=== PATIENT | female | born 1990 | race Caucasian/White ===

== ENCOUNTER 2018-06-26 07:28 | Emergency (ER) | payer SELFPAY ==
--- NOTE | 2018-06-26 07:55 | PHYS DOC ---
Past History Past Medical History: No Pertinent History Past Surgical History: No Surgical History Smoking: Cigarettes Adult General HPI HPI Patient is a 28-year-old female who presents to the emergency department for evaluation. She states that yesterday she began experiencing a sore throat and this morning awakened with trismus, and some pain and discomfort in her left lateral neck and TMJ area. She is unable to fully open her mouth, due to the pain. She does report pain with swallowing. She also states that she is spitting her saliva, because it hurts to swallow. She has had somewhat of a muffled voice as well. She has not had any fevers or chills. She has not had any nausea, or vomiting. Other than as stated above, there are no alleviating, or exacerbating factors to her symptoms. Review of Systems Review of Systems Constitutional: Denies fever or chills [] Eyes: Denies change in visual acuity, redness, or eye pain [] HENT: Denies nasal congestion. Reports a sore throat [] Respiratory: Denies cough or shortness of breath [] Cardiovascular:The patient denies any shortness of breath, chest pain, palpitations, or orthopnea [] GI: Denies abdominal pain, nausea, vomiting, bloody stools or diarrhea [] : Denies dysuria or hematuria [] Musculoskeletal: Denies back pain or joint pain [] Integument: Denies rash or skin lesions [] Neurologic: Denies headache, focal weakness or sensory changes [] Endocrine: Denies polyuria or polydipsia [] All other systems were reviewed and found to be within normal limits, except as documented in this note. Physical Exam Physical Exam PHYSICAL EXAM: CONSTITUTIONAL: Well developed, well nourished HEAD: normocephalic, atraumatic EENT: PERRL, EOMI. Conjunctivae normal color, sclerae non-icteric; moist mucous membranes. The tympanic membranes are normal bilaterally. Trismus is present, there is peritonsillar edema noted in the area of the left tonsillar pillar, with some uvular deviation to the right, along with left-sided submandibular lymphadenopathy, all suggestive of a peritonsillar abscess. The voice is somewhat muffled, but the airway is patent. There is no stridor or laryngeal tenderness to palpation. NECK: There is left-sided tender submandibular lymphadenopathy. Otherwise neck is Supple, non-tender; no meningismus. LUNGS: Lungs CTA, breathing even and unlabored. Normal air movement. HEART: Regular rate and rhythm, no murmur CHEST: No deformity; non-tender ABDOMEN: The abdomen is soft, and non-tender, no masses or bruits. EXTREM: Normal ROM; no deformity, no calf tenderness. Normal pulses palpable in all extremities. There is no pedal edema. SKIN: No rash; no diaphoresis NEURO: Alert; normal speech and cognition; CN's grossly intact; strength grossly intact without focal deficit. BACK: No CVA TTP. Current Patient Data Lab Results Laboratory Tests Test 06/26/18 07:45 06/26/18 08:13 Group A Streptococcus Rapid Negative White Blood Count 8.8 x10^3/uL Red Blood Count 4.41 x10^6/uL Hemoglobin 13.5 g/dL Hematocrit 39.7 % Mean Corpuscular Volume 90 fL Mean Corpuscular Hemoglobin 31 pg Mean Corpuscular Hemoglobin Concent 34 g/dL Red Cell Distribution Width 13.9 % Platelet Count 315 x10^3/uL Sodium Level 138 mmol/L Potassium Level 3.9 mmol/L Chloride Level 104 mmol/L Carbon Dioxide Level 29 mmol/L Anion Gap 5 Blood Urea Nitrogen 7 mg/dL Creatinine 0.8 mg/dL Estimated GFR (Cockcroft-Gault) 86.7 Glucose Level 104 mg/dL Calcium Level 8.6 mg/dL Current Medications Medications (Trade) Dose Ordered Sig/Katarina Route PRN Reason Start Time Stop Time Status Last Admin Dose Admin Clindamycin Phosphate 50 ml @ 100 mls/hr 1X ONCE IV 06/26/18 08:00 06/26/18 08:29 DC 06/26/18 08:24 Dexamethasone Sodium Phosphate (Decadron) 10 mg 1X ONCE IV 06/26/18 08:30 06/26/18 08:31 DC 06/26/18 08:24 EKG EKG [] Radiology/Procedures Radiology/Procedures [] Course & Med Decision Making Course & Med Decision Making 7:55 AM: ENT is not available at this facility, nor [facility] today. I called the transfer center to arrange definitive management. 8:50 AM: The patient's condition remained stable. I spoke with the transfer center, and the patient was accepted to the ER at by Dr. Meli Espinoza, ENT. I recommended patient be transferred via ambulance, for airway monitoring and IV maintenance, but the patient refused ambulance transfer. She did express understanding of risks involved in this decision, as well as the need to go immediately to the ER, and she has a family member who will drive her. I discussed importance of remaining nothing by mouth. Dragon Disclaimer Dragon Disclaimer This electronic medical record was generated, in whole or in part, using a voice recognition dictation system. Departure Departure: Impression: Primary Impression: Peritonsillar abscess Disposition: XFER SHT-TRM HOSP () Condition: STABLE Referrals: PCP,NO (PCP) DIRK GRIGGS MD Jun 26, 2018 07:55
[2018-06-26] MEDS ORDERED: CLINDAMYCIN 900MG PREMIX 50 ML IV ONE (08:00)
[2018-06-26 08:25] LABS: HEMATOCRIT 39.7 % (36.0-47.0); HEMOGLOBIN 13.5 g/dL (12.0-15.5); RED BLOOD COUNT 4.41 x10^6/uL (3.50-5.40); RED CELL DISTRIBUTION WIDTH 13.9 % (11.5-14.5); WHITE BLOOD COUNT 8.8 x10^3/uL (4.0-11.0)
[2018-06-26] MEDS ORDERED: DEXAMETHASONE SOD PHOS 10 MG/ML VIAL IV ONE (08:30)
[2018-06-26 08:34] LABS: CALCIUM 8.6 mg/dL (8.5-10.1); CREATININE 0.8 mg/dL (0.6-1.0); GFR 86.7; POTASSIUM 3.9 mmol/L (3.5-5.1)
[2018-06-26 09:27] VITALS: BP 115/68
== END 2018-06-26 09:32 | disposition short-term general hospital (02) ==
LOC: ER 07:28
DX: J36 Peritonsillar abscess (principal); R59.1 Generalized enlarged lymph nodes; F17.210 Nicotine dependence, cigarettes, uncomplicated
CPT/HCPCS: 36415; 80048; 85027; 87070; 87880; 96365; 96375; 99285; J1100; J3490

== ENCOUNTER 2021-01-18 13:19 | Emergency (ER) | payer MEDICAID ==
[~2021-01-18] VITALS: Ht 177.8 cm; Wt 70.4 kg
[2021-01-18] MEDS ORDERED: ONDANSETRON PF 4 MG/2 ML VIAL. ONE (13:40)
--- NOTE | 2021-01-18 13:47 | EKG ---
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
--- NOTE | 2021-01-18 14:13 | PHYS DOC ---
Past History Past Medical History: No Pertinent History Additional Past Medical Histor: ADHD Past Surgical History: No Surgical History Smoking: Cigarettes Alcohol Use: Occasionally Drug Use: None Adult General Chief Complaint Chief Complaint: CHEST PAIN HPI HPI Patient is a 30-year-old female who presents with chest pain. Reports the chest pain began approximately 2 to 3 hours prior to presentation, when she got up to get breakfast or her son. She reports never having chest pain like this in the past reports that it begins midsternal and radiates to her back is constant in nature and worsens with inspiration. Reports that she cannot take a deep breath in because of pain. Review of Systems Review of Systems Fourteen body systems of review of systems have been reviewed. See HPI for pertinent positives and negative responses, other rand all other systems are negative, non-pertinent or non-contributory Current Medications Current Medications Current Medications Medications (Trade) Dose Ordered Sig/Katarina Start Time Stop Time Status Last Admin Dose Admin Ondansetron HCl (Zofran) 4 mg STK-MED ONCE 01/18/21 13:40 01/18/21 13:41 DC Sodium Chloride 1,000 ml @ 1,000 mls/hr 1X ONCE 01/18/21 14:15 01/18/21 15:14 UNV Allergies Allergies Allergies Coded Allergies Type Severity Reaction Last Updated Verified Inhaled Anesthetics (Halogen Based) Allergy Unknown 06/26/18 Yes Penicillins Allergy Unknown 06/26/18 Yes Sulfa (Sulfonamide Antibiotics) Allergy Unknown 06/26/18 Yes amoxicillin Allergy Unknown 06/26/18 Yes Physical Exam Physical Exam Constitutional: Well developed, well nourished, no acute distress, non-toxic appearance. HENT: Normocephalic, atraumatic, bilateral external ears normal, oropharynx moist, no oral exudates, nose normal. Eyes: PERRLA, EOMI, conjunctiva normal, no discharge. Neck: Normal range of motion, no tenderness, supple, no stridor. Cardiovascular: Heart rate regular, sinus rhythm, no murmurs rubs or gallops Lungs & Thorax: Bilateral breath sounds clear to auscultation Abdomen: Bowel sounds normal, soft, no tenderness, no masses, no pulsatile masses. Nonsurgical abdomen, no peritoneal signs Skin: Warm, dry, no erythema, no rash. Back: No tenderness, no CVA tenderness. Extremities: No tenderness, no cyanosis, no clubbing, ROM intact, no edema. Neurologic: Alert and oriented X 3, grossly normal motor & sensory function, no focal deficits noted. Psychologic: Affect normal, judgement normal, mood normal. Current Patient Data Vital Signs Vital Signs Date Time Temp Pulse Resp B/P (MAP) Pulse Ox O2 Delivery O2 Flow Rate FiO2 01/18/21 13:19 98.2 70 34 94/42 (59) 99 EKG EKG EKG ordered and interpreted by myself at 1340 hrs. as sinus rhythm at 62 bpm, unremarkable intervals, no axis deviation, no ischemic findings, no STEMI Radiology/Procedures Radiology/Procedures CTA CHEST AND ABDOMEN dated 01/18/2021 2:21 PM Indication:Reason: SUBSTERNAL CHEST PAIN TO RIGHT AND RADIATES TO BACK / Spl. Instructions: OMNI 350 100CC - DELAYS IN ABD PER DR WEI TO LOOK AT PANCREAS / History: Comparison: No comparison is available. Technique: CT images were made through the chest and abdomen using an infusion of 100 mL Omnipaque 350. Multiplanar and 3-D reformations were performed. Some additional delayed images were performed through the abdomen. Exposure: One or more of the following individualized dose reduction techniques were utilized for this examination: 1. Automated exposure control 2. Adjustment of the mA and/or kV according to patient size 3. Use of iterative reconstruction technique. One or more of the following individualized dose reduction techniques were utilized for this examination: 1. Automated exposure control 2. Adjustment of the mA and/or kV according to patient size 3. Use of iterative reconstruction technique Findings: CTA chest: The thoracic aorta is normal in caliber. There is no dissection. There is some beam hardening artifact near the great vessel origins, but there is probably the standard branching pattern. Although this study was not performed to evaluate other structures, there is a focal area of opacity anteriorly in the right upper lobe adjacent to the chest wall and mediastinum. This could be a small area of consolidation or atelectasis. The lungs otherwise are clear. The central airways appear normal. There is no apparent adenopathy. There is some soft tissue density in the anterior mediastinum. Based on configuration, this is favored to represent residual thymus. No discrete mass is seen here. A small amount of air density is visible at both sternoclavicular joints. This could relate to overhead positioning of the patient's arms with some vacuum phenomenon in the joint. No bony destructive process is seen. CTA abdomen findings: The abdominal aorta is normal in caliber. The visceral vessels are widely patent. No abnormal vascularity is seen. Although this study was not performed to evaluate other structures, low attenuation in the left lobe of the liver is consistent with focal fat deposition. The liver, spleen, pancreas, kidneys and adrenal glands otherwise appear normal. IMPRESSION: Normal CTA study of the abdomen and pelvis. There is a small area of opacity anteriorly in the right lung. This may be focal consolidation or atelectasis. Electronically signed by: Wenceslao Simeon Jr., MD (01/18/2021 3:37 PM) [id number] Heart Score Risk Factors: Risk Factors: DM, Current or recent (<one month) smoker, HTN, HLP, family history of CAD, obesity. Risk Scores: Risk Factors: DM, Current or recent (<one month) smoker, HTN, HLP, family history of CAD, obesity. Course & Med Decision Making Course & Med Decision Making Pertinent Labs and Imaging studies reviewed. (See chart for details) [] Dragon Disclaimer Dragon Disclaimer This electronic medical record was generated, in whole or in part, using a voice recognition dictation system. Departure Departure: Impression: Primary Impression: Chest pain, unspecified Disposition: 01 DC HOME SELF CARE/HOMELESS Condition: IMPROVED Referrals: PCPMARY CARMEN (PCP) Patient Instructions: Costochondritis, Gastritis, Adult Additional Instructions: You were seen for chest pain. Your workup did not show any acute abnormalities today, but does not indicate that you do not have underlying cardiovascular disease. 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 As mentioned, you should continue applying heat to the region and utilizing NSAIDs and/or Tylenol for pain control as needed. Also, please utilize daily prescription given to you at discharge for your stomach acid, please take as directed to completion. There might be indication for further diagnostic work-up in outpatient setting or specialist referral. You should return to the ED if you develop worsening chest pain, shortness of breath, fever, abnormal sweating, leg swelling, or any other new or concerning symptoms. Scripts Esomeprazole Magnesium (NEXIUM CAPSULE) 20 Mg Capsule.dr 1 CAP PO DAILY for HEARTBURN, #14 CAP 0 Refills Prov: FREEDOM WEI DO 01/18/21 FREEDOM WEI DO Jan 18, 2021 14:12
[2021-01-18] MEDS: ONDANSETRON PF 4 MG/2 ML VIAL. IVP ONE (14:25)
[2021-01-18] MEDS: IV NORMAL SALINE 1,000ML 1,000 ML IV ONE (14:27)
[2021-01-18] MEDS: ASPIRIN CHEWABLE 81 MG TABLET. PO ONE (14:27)
[2021-01-18 14:31] LABS: CALCIUM 9.2 mg/dL (8.5-10.1); CREATININE 0.8 mg/dL (0.6-1.0); GFR 85.4; POTASSIUM 3.6 mmol/L (3.5-5.1)
[2021-01-18] MEDS: IOHEXOL 350 MG/ML 100 ML VIAL. IV ONE (14:33)
[2021-01-18 14:37] LABS: ALBUMIN 3.9 g/dL (3.4-5.0); ALBUMIN/GLOBULIN RATIO 1.3 (1.0-1.7); TOTAL BILIRUBIN 0.4 mg/dL (0.2-1.0)
[2021-01-18 14:40] LABS: BASO % 0 % (0-3); EOS # 0.1 x10^3/uL (0.0-0.7); EOS % 1 % (0-3); HEMATOCRIT 38.8 % (36.0-47.0); HEMOGLOBIN 13.1 g/dL (12.0-15.5); LYMPH # 1.4 x10^3/uL (1.0-4.8); LYMPH % 11 % (24-48); MEAN CORPUSCULAR HEMOGLOBIN 32 pg (25-35); MEAN CORPUSCULAR HGB CONC 34 g/dL (31-37); MEAN CORPUSCULAR VOLUME 95 fL (79-100); MONO # 0.5 x10^3/uL (0.0-1.1); MONO % 4 % (0-9); NEUT # 10.8 x10^3uL (1.8-7.7); NEUT % 84 % (31-73); PLATELET COUNT 261 x10^3/uL (140-400); RED BLOOD COUNT 4.09 x10^6/uL (3.50-5.40); RED CELL DISTRIBUTION WIDTH 12.3 % (11.5-14.5); WHITE BLOOD COUNT 12.9 x10^3/uL (4.0-11.0)
--- NOTE | 2021-01-18 15:39 | RAD ---
CTA CHEST AND ABDOMEN dated 01/18/2021 2:21 PM Indication:Reason: SUBSTERNAL CHEST PAIN TO RIGHT AND RADIATES TO BACK / Spl. Instructions: OMNI 350 100CC - DELAYS IN ABD PER DR WEI TO LOOK AT PANCREAS / History: Comparison: No comparison is available. Technique: CT images were made through the chest and abdomen using an infusion of 100 mL Omnipaque 35 0. Multiplanar and 3-D reformations were performed. Some additional delayed images were performed thr ough the abdomen. Exposure: One or more of the following individualized dose reduction techniques wer e utilized for this examination: 1. Automated exposure control 2. Adjustment of the mA and/or kV ac cording to patient size 3. Use of iterative reconstruction technique. One or more of the following individualized dose reduction techniques were utilized for this examinat ion: 1. Automated exposure control 2. Adjustment of the mA and/or kV according to patient size 3. Use of iterative reconstruction technique Findings: CTA chest: The thoracic aorta is normal in caliber. There is no dissection. There is some beam harden ing artifact near the great vessel origins, but there is probably the standard branching pattern. Although this study was not performed to evaluate other structures, there is a focal area of opacity anteriorly in the right upper lobe adjacent to the chest wall and mediastinum. This could be a small area of consolidation or atelectasis. The lungs otherwise are clear. The central airways appear yenni l. There is no apparent adenopathy. There is some soft tissue density in the anterior mediastinum. Ba sed on configuration, this is favored to represent residual thymus. No discrete mass is seen here. A small amount of air density is visible at both sternoclavicular joints. This could relate to overhead positioning of the patient's arms with some vacuum phenomenon in the joint. No bony destructive proc ess is seen. CTA abdomen findings: The abdominal aorta is normal in caliber. The visceral vessels are widely paten t. No abnormal vascularity is seen. Although this study was not performed to evaluate other structures, low attenuation in the left lobe of the liver is consistent with focal fat deposition. The liver, spleen, pancreas, kidneys and adrena l glands otherwise appear normal. IMPRESSION: Normal CTA study of the abdomen and pelvis. There is a small area of opacity anteriorly in the right lung. This may be focal consolidation or ate lectasis. Electronically signed by: Wenceslao Simeon Jr., MD (01/18/2021 3:37 PM) [id number]
[2021-01-18] MEDS ORDERED: LIDO:MAALOX 1:1 20 ML SINGLE DOSE. ONE (15:56)
[2021-01-18] MEDS: LIDO:MAALOX 1:1 20 ML SINGLE DOSE. PO ONE (15:58)
[2021-01-18 16:02] VITALS: BP 127/74
[2021-01-18] MEDS ORDERED: ESOM20CA PO (16:09)
[2021-01-18 16:31] LABS: U PREG PATIENT NEGATIVE (NEG)
[2021-01-18 16:35] LABS: BARBITURATES NEG (NEG); BENZODIAZEPINES NEG (NEG); CANNABINOIDS NEG (NEG); COCAINE NEG (NEG); METHADONE NEG (NEG); OPIATES NEG (NEG); PHENCYCLIDINE NEG (NEG)
[2021-01-18 16:38] LABS: AMPHETAMINE/METHAMPHETAMINE POS (NEG)
== END 2021-01-18 16:42 | disposition home or self-care (01) ==
LOC: ER 13:19
DX: R07.89 Other chest pain (principal); Z88.0 Allergy status to penicillin; Z88.1 Allergy status to other antibiotic agents
CPT/HCPCS: 36415; 71275; 74175; 80053; 80307; 81025; 83605; 84484; 85025; 93005; 96361; 96374; 96375; 99285; G0480; J2405; J3010; J7030; Q9967

== ENCOUNTER → 2021-01-20 | Outpatient (CLI) | payer MEDICAID ==
[2021-01-18 16:02] VITALS: BP 127/74
[~2021-01-20] MED LIST: ESOM20CA PO
--- NOTE | 2021-01-20 15:29 | RAD ---
EXAM: Chest, 2 views. HISTORY: Chest pain. COMPARISON: CT angiogram dated 01/18/2021. FINDINGS: 2 views of the chest are obtained. There is no infiltrate, pleural effusion or pneumothorax . The heart is normal in size. IMPRESSION: No acute pulmonary finding. Electronically signed by: Pamela Fuentes MD (01/20/2021 3:27 PM) [facility]
== END ==
LOC: PMG 15:10
PROVIDERS: ATTEND Physician Assistant Medical
DX: R07.9 Chest pain, unspecified (principal)
CPT/HCPCS: 71046